=== PATIENT | male | born 1950 | race Caucasian/White ===

== ENCOUNTER 2023-11-17 18:54 | Inpatient (IN) | payer OTHER ==
[~2023-11-17] VITALS: Ht 185.4 cm; Wt 126.3 kg
[2023-11-17] MEDS ORDERED: NS 1,000 ML IV SCH (19:15)
[2023-11-17 19:24] LABS: BASOPHILS ABSOLUTE AUTO 0.04 K/mm3 (0.00-0.23); BASOPHILS PERCENT AUTO 1 % (0-2); EOSINOPHILS ABSOLUTE AUTO 0.05 K/mm3 (0.00-0.68); EOSINOPHILS PERCENT AUTO 1 % (0-6); Hematocrit 42.3 % (37.0-53.0); Hemoglobin 14.4 g/dL (13.5-17.5); IMMATURE GRAN ABSOLUTE AUTO 0.03 K/mm3 (0.00-0.10); IMMATURE GRAN PERCENT AUTO 0 % (0-1); LYMPHOCYTES ABSOLUTE AUTO 1.42 K/mm3 (0.84-5.20); LYMPHOCYTES PERCENT AUTO 18 % (21-46); MONOCYTES PERCENT AUTO 10 % (4-13); Mean Corpuscular HGB 31.3 pg (26.0-34.0); Mean Corpuscular Volume 92 fL (80-100); Mean Platelet Volume 10.1 fL (9.1-12.4); NEUTROPHILS ABSOLUTE AUTO 5.58 K/mm3 (1.96-9.15); NEUTROPHILS PERCENT AUTO 71 % (41-73); Platelet Count 246 K/mm3 (150-400); RDW Coefficient Variation 12.6 % (11.7-14.2); RDW Standard Deviation 42.5 fL (35.1-46.3); White Blood Cell Count 7.92 K/mm3 (4.00-11.30)
[2023-11-17] MEDS ORDERED: ASPI81CH PO (19:34)
[2023-11-17] MEDS ORDERED: GABA100 PO (19:34)
[2023-11-17] MEDS ORDERED: Prinivil10 MG PO (19:34)
[2023-11-17] MEDS ORDERED: ZOCOR20 MG PO (19:35)
[2023-11-17] MEDS ORDERED: METF500 PO (19:35)
[2023-11-17 19:51] LABS: Albumin, Blood 3.9 g/dL (3.4-5.0); Bilirubin, Total 0.7 mg/dL (0.1-1.0); Bun/Creatinine Ratio 9.5 (12.0-20.0); Calcium, Blood 9.6 mg/dL (8.5-10.1); Creatinine, Blood 2.62 mg/dL (0.60-1.20); Globulin, Blood 3.9 g/dL (2.2-4.0); Potassium, Blood 4.1 mmol/L (3.5-5.5); Total Protein, Blood 7.8 g/dL (6.4-8.2)
[2023-11-18] MEDS ORDERED: Lactated Ringer's 1,000 ML IV SCH ×2 (00:25→12:55)
[2023-11-18] MEDS ORDERED: Acetaminophen 325 MG TABLET PO PRN (00:25)
[2023-11-18] MEDS ORDERED: Ondansetron HCl 2 MG / ML 2ML Vial IV PRN (00:25)
[2023-11-18] MEDS ORDERED: Cyclobenzaprine HCl 10 MG Tab PO PRN (00:45)
[2023-11-18] MEDS ORDERED: Lactated Ringer's 1,000 ML IV ONE (01:31)
[2023-11-18 02:26] VITALS: BP 107/75
[2023-11-18 06:21] LABS: Calcium, Blood 8.6 mg/dL (8.5-10.1); Creatinine, Blood 1.5 mg/dL (0.60-1.20); Potassium, Blood 3.7 mmol/L (3.5-5.5)
--- NOTE | 2023-11-18 06:43 | NUR ---
PT ARRIVED IN STABLE CONDITION, VSS, TELE PLACED, LR @125/HR. IMPROVEMENT IN LAB VALUES: CREATININE, GFR, ETC SEE CHART. ADMISSION COMPLETED, REPORTS SOME MILD DISCOMFORT AND CRAMPING IN HIS BACK. SLEPT MOST OF SHIFT.
[2023-11-18 07:27] VITALS: BP 128/87
[2023-11-18] MEDS ORDERED: Insulin Human Lispro 100 Units/ML 3ML Syringe SC SCH (07:30)
[2023-11-18] MEDS ORDERED: Gabapentin 100 MG Cap PO SCH (09:00)
[2023-11-18] MEDS ORDERED: Heparin Sodium,Porcine 5,000 UNIT/0.5 ML SDV SC SCH (09:00)
[2023-11-18] MEDS ORDERED: Aspirin 81 MG Chew PO SCH (09:00)
[2023-11-18 12:47] LABS: U Amphetamine Screen Not Detected; U Barbituate Screen Not Detected; U Benzodiazapine Screen Not Detected; U Buprenorphine Screen Not Detected; U Cannabinoids Screen Not Detected; U Cocaine Screen Not Detected; U Methadone Screen Not Detected; U Methamphetamine Screen Not Detected; U Opiates Screen Not Detected; U Oxycodone Screen Not Detected; U Phencyclidine Screen Not Detected
[2023-11-18 15:49] VITALS: BP 132/94
--- NOTE | 2023-11-18 17:49 | NUR ---
SHIFT SUMMARY: PT A/O X4. PLEASANT AND COOPERATIVE WITH CARE. NO ACUTE CHANGES THIS SHIFT. PT REMAINS TO C/O BACK SPASMS/CRAMPS. FLEXERIL PROVIDED PER EMAR. SB ASSIST IN ROOM D/T WEAKNESS. CALL LIGHT IN REACH. BED IN LOWEST POSITION. NS INFUSING @75/HR. CALL LIGHT IN REACH. BED IN LOWEST POSITION.
[2023-11-18 19:38] VITALS: BP 127/80
[2023-11-18] MEDS ORDERED: Atorvastatin 40 MG Tab PO SCH (21:00)
[2023-11-18] MEDS ORDERED: Famotidine 20 MG Tab PO SCH (21:00)
[2023-11-19 02:58] VITALS: BP 162/90
[2023-11-19 05:30] LABS: Bun/Creatinine Ratio 21.9 (12.0-20.0); Creatinine, Blood 0.96 mg/dL (0.60-1.20)
[2023-11-19 06:33] VITALS: BP 153/79
--- NOTE | 2023-11-19 06:33 | NUR ---
LR @ 75 /HR. CREATININE AND GFR LAB VALUES WNL THIS MORNING. VSS WITH EXCEPTION OF INCREASED BP, LAST BP 153/79 @ 0630. PT STABLE, CALLS APPROPRIATELY. TELE SR 88 BPM WITH 1ST DEGREE HB.
[2023-11-19 07:52] VITALS: BP 160/104
[2023-11-19 08:05] VITALS: BP 145/98
[2023-11-19 15:43] VITALS: BP 159/99
[2023-11-19] MEDS ORDERED: Lisinopril 10 MG Tab PO SCH (16:00)
--- NOTE | 2023-11-19 18:17 | NUR ---
SHIFT SUMMARY: PT A/O X4. PLEASANT AND COOPERATIVE WITH CARE. HTN NOTED THIS SHIFT. MEDICATED PER EMAR. ON RA. SB ASSIST. CONTINENT WITH URINAL. PLAN FOR PT TO D/C TOMORROW TO HOT UNTIL PT CAN GO BACK TO [place] ON MONDAY. CALL LIGHT IN REACH. BED IN LOWEST POSTION.
[2023-11-19 19:28] VITALS: BP 163/104
[2023-11-20 03:43] VITALS: BP 133/103
[2023-11-20 05:59] LABS: Bun/Creatinine Ratio 18.2 (12.0-20.0); Calcium, Blood 8.9 mg/dL (8.5-10.1); Creatinine, Blood 0.88 mg/dL (0.60-1.20)
[2023-11-20 07:46] VITALS: BP 127/91
[2023-11-20] MEDS ORDERED: GABA100 PO (15:07)
[2023-11-20] MEDS ORDERED: FAMO20 PO (15:07)
--- NOTE | 2023-11-20 15:53 | NUR ---
DISCHARGE: PT D/C @4106 VIA WHEELCHAIR WITH [facility]SPOR TTO [facility] [place]. RHA AND LFA IV REMOVED BY GIS CONSULTANT W/O COMPLICATIONS. TELE SENT BACK. MEDS FAXED TO [facility]. NO QUESTIONS AT TIME OF D/C.
== END 2023-11-20 15:39 | disposition home or self-care (01) | DRG 684 ==
LOC: ER 18:54 → MEDS 18:55
PROVIDERS: Family Medicine; Internal Medicine; Student in an Organized Health Care Education/Training Program; ADMIT Internal Medicine
DX: N17.9 Acute kidney failure, unspecified (principal); E11.9 Type 2 diabetes mellitus without complications; I10 Essential (primary) hypertension; R25.2 Cramp and spasm; E86.0 Dehydration; I44.0 Atrioventricular block, first degree; W19.XXXA Unspecified fall, initial encounter; Z79.899 Other long term (current) drug therapy
CPT/HCPCS: 36415; 70450; 71046; 80048; 80053; 82550; 82570; 82947; 83605; 83690; 83735; 84300; 84443; 84484; 85025; 93005; 93010; 96360; 96361; 96372; 99285-25; A9270; G0378; J1644; J7030; J7120